=== PATIENT | male | born 1985 | race Asian ===

== ENCOUNTER 2017-04-01 22:16 | Emergency (ER) | payer OTHER ==
[~2017-04-01] VITALS: Ht 165.1 cm; Wt 61.7 kg
[2017-04-01 22:30] VITALS: BP 141/89; Ht 165.1 cm; Wt 61.7 kg
== END 2017-04-02 00:32 | disposition left against medical advice (07) ==
LOC: ED 22:16
DX: Z53.21 Procedure and treatment not carried out due to patient leaving prior to being seen by health care provider (principal)